=== PATIENT | male | born 1990 | race African-American/Black ===

== ENCOUNTER 2017-01-05 13:45 | Emergency (ER) | payer BC ==
[2017-01-05] MEDS ORDERED: TETRACAINE HCL 0.5% OPH SOLN 2 ML OU ONE (15:14)
--- NOTE | 2017-01-05 15:17 | ER Document Report ---
ED Eye Complaint - General Chief Complaint: Eye Problem Stated Complaint: PAIN IN LEFT EYE Time Seen by Provider: 01/05/17 14:30 Mode of Arrival: Ambulatory Information source: Patient - HPI Onset: Just prior to arrival Eye location: Left Injury: No Occurred at: Work Quality of pain: No pain Severity: Mild Contact lenses worn: No Associated symptoms: Itching, Redness. denies: Pain, Photophobia, Matting, Eyelid swelling, Orbital swelling, Foreign body sensation, Blurred vision, Double vision, Decreased vision, Loss of vision Notes: Patient arrives with complaints of left eye swelling. 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 He touched his left eye and then noticed that the left eye became swollen. He denies any significant pain. No drainage. No blurred or loss vision. No foreign body. He does not wear contacts. He denies any numbness, tingling, weakness. No fevers, or rash. He denies any other complaints at this time. - Related Data Allergies/Adverse Reactions: No Known Allergies Allergy (Unverified 01/05/17 13:49) Past Medical History - Social History Smoking Status: Never Smoker Chew tobacco use (# tins/day): No Frequency of alcohol use: None Drug Abuse: None Family History: Reviewed & Not Pertinent Renal/ Medical History: Denies: Hx Peritoneal Dialysis Surgical Hx: Negative Review of Systems - Review of Systems -: Yes All other systems reviewed and negative Physical Exam - Vital signs Vitals: Temp Pulse BP Pulse Ox 98.4 F 57 L 139/73 H 100 01/05/17 13:49 01/05/17 13:49 01/05/17 13:49 01/05/17 13:49 - Notes Notes: GENERAL: alert, cooperative, nontoxic, no distress. HEAD: normocephalic, atraumatic EYES: Ecchymosis noted to the left conjunctival. Minimal injection. Pupils equal round react to light. Extraocular muscles are intact bilaterally. On fluorescein exam there is an abrasion noted to the lateral aspect at approximately 3:00 to the cornea. No dendritic lesions. No foreign body. No periorbital redness or swelling. Negative Lolly sign. EARS: no external swelling, no external redness NOSE: atraumatic, no external swelling MOUTH/THROAT: mucous membranes moist and pink NECK: soft, supple, full range of motion, no meningismus. CHEST: no distress, lungs clear and equal throughout. No wheezing, rales, rhonchi. CARDIAC: regular rate and rhythm, no murmur, normal capillary refill, normal pulses. BACK: full range of motion, no CVA tenderness. EXTREMITIES: full range of motion of all extremities. No redness, no swelling. NEURO: alert and oriented 3, no focal deficits, full range of motion of all extremities. PYSCH: appropriate mood, affect. Patient is cooperative. SKIN: pink, warm, dry, no rash. Course - Re-evaluation Re-evalutation: 01/05/17 15:55 The patient is nontoxic appearing with stable vitals. The patient was at work when he had an itch to his left eye. He states that he scratched his eye and then noticed that his eye was swollen. He appears to have a small abrasion to the lateral aspect of the left cornea. Is also noted to have ecchymosis to the eye as well. I will place him on Polytrim antibiotic eyedrops for the abrasion. Zaditor eyedrops for allergic reaction. He was also instructed to take Benadryl and apply cool compresses to the left eye. Follow-up if not improving in the next 2 days, sooner for increased pain, fever, redness or swelling around the outside of the eye, or any further concerns. The patient is noted to have elevated blood pressure during today's emergency department visit. The patient was informed of this finding. The patient was instructed that this may be related to pre-hypertension and requires further evaluation with a primary care provider. The patient has no hypertensive symptoms at this time. The patient's emergency department workup and current diagnosis were explained to the patient and or family. Follow-up instructions were provided. Medications if prescribed were discussed. Instructions for when to return to the emergency department including specific worrisome symptoms were discussed with the patient and/or family. - Vital Signs Vital signs: Temp Pulse Resp BP Pulse Ox 98.4 F 57 L 139/73 H 100 01/05/17 13:49 01/05/17 13:49 01/05/17 13:49 01/05/17 13:49 Discharge - Discharge Clinical Impression: Chemosis of left conjunctiva Left corneal abrasion Qualifiers: Encounter type: initial encounter Qualified Code(s): S05.02XA - Injury of conjunctiva and corneal abrasion without foreign body, left eye, initial encounter Condition: Stable Disposition: HOME, SELF-CARE Instructions: Corneal Abrasion ([facility]), Eyedrop Use ([facility]), Chemosis ([facility]) Additional Instructions: Take medications as prescribed. Take ofse-nts-juosohs Benadryl every 6 hours. Apply cool compresses to the left eye. Follow-up if not better in 2 days, sooner for increased pain, fever, lost vision, redness or swelling around the outside of the eye, or any further concerns. Your blood pressure was elevated during today's visit. Have this rechecked with your doctor. Prescriptions: Ketotifen Fumarate [Zaditor] 1 drop OP BID #1 bot Polymyxin B Sulfate/Tmp [Polytrim Oph Soln 10 ml] 2 drop OP Q6H #1 bottle Forms: Elevated Blood Pressure Referrals: HERMELINDA SALMON MD [ACTIVE STAFF] - Follow up as needed
[2017-01-05 16:15] VITALS: BP 116/78
== END 2017-01-05 16:22 | disposition home or self-care (01) ==
LOC: ER 13:45
DX: S05.02XA Injury of conjunctiva and corneal abrasion without foreign body, left eye, initial encounter (principal); X58.XXXA Exposure to other specified factors, initial encounter; H11.422 Conjunctival edema, left eye; H57.11 Ocular pain, right eye; R03.0 Elevated blood-pressure reading, without diagnosis of hypertension
CPT/HCPCS: 99283

== ENCOUNTER 2017-08-17 20:06 | Emergency (ER) | payer OTHER, BC ==
[2017-08-17 20:16] VITALS: BP 119/69
--- NOTE | 2017-08-17 20:42 | ER Document Report ---
HPI - HPI Pain Level: 3 Context: Patient is a 27-year-old male presents emergency department with chief complaint of insect bite. Patient states that he was at work when he noticed a bite on the dorsal surface of his right forearm. He admits to itching but denies any pain, swelling, drainage or bleeding. - CONSTITUTIONAL Constitutional: DENIES: Fever, Chills Past Medical History - Social History Smoking Status: Unknown if Ever Smoked Family History: Reviewed & Not Pertinent Patient has suicidal ideation: No Patient has homicidal ideation: No Pulmonary Medical History: Reports: Hx Asthma - childhood Renal/ Medical History: Denies: Hx Peritoneal Dialysis Vertical Provider Document - CONSTITUTIONAL Agree With Documented VS: Yes Notes: PHYSICAL EXAM GENERAL: Alert, interacts well. HEAD: Normocephalic, atraumatic. EXTREMITIES: Moves all 4 extremities spontaneously. 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 No edema, radial and dorsalis pedis pulses 2/4 bilaterally. No cyanosis. NEUROLOGICAL: Alert and oriented x4. Normal speech. PSYCH: Normal affect, normal mood. SKIN: Warm, dry, normal turgor. 1 cm wheal without any evidence of surrounding induration, cellulitis, erythema, tenderness. - INFECTION CONTROL TRAVEL OUTSIDE OF THE [place] IN LAST 30 DAYS: No Course - Re-evaluation Re-evalutation: 08/17/17 20:42 Patient is a 27-year-old male presents emergency part with a chief complaint of insect bite. No evidence of associated infection, underlying muscular injury. Patient educated on conservative wound care and strict return precautions. - Vital Signs Vital signs: Temp Pulse Resp BP Pulse Ox 98.2 F 52 L 16 119/69 100 08/17/17 20:14 08/17/17 20:14 08/17/17 20:14 08/17/17 20:14 08/17/17 20:14 Discharge - Discharge Clinical Impression: Insect bite Qualifiers: Encounter type: initial encounter Qualified Code(s): W57.XXXA - Bitten or stung by nonvenomous insect and other nonvenomous arthropods, initial encounter Condition: Good Disposition: HOME, SELF-CARE Instructions: Insect Bites ([facility]) Forms: Return to Work
== END 2017-08-17 20:47 | disposition home or self-care (01) ==
LOC: ER 20:06
DX: S60.861A Insect bite (nonvenomous) of right wrist, initial encounter (principal); W57.XXXA Bitten or stung by nonvenomous insect and other nonvenomous arthropods, initial encounter; Y99.0 Civilian activity done for income or pay
CPT/HCPCS: 99281

== ENCOUNTER 2017-08-31 20:56 | Emergency (ER) | payer BC, OTHER ==
--- NOTE | 2017-08-31 21:54 | RADIOLOGY REPORT (SQ) ---
EXAM DESCRIPTION: SHOULDER RIGHT 2 OR MORE VIEWS COMPLETED DATE/TIME: 08/31/2017 9:43 pm REASON FOR STUDY: pain COMPARISON: None. NUMBER OF VIEWS: Three views. TECHNIQUE: Internal rotation, external rotation, and Y view images acquired of the right shoulder. LIMITATIONS: None. FINDINGS: MINERALIZATION: Normal. BONES: No acute fracture or dislocation. No worrisome bone lesions. No significant osteophytes. GLENOHUMERAL JOINT: No significant findings. ACROMIOCLAVICULAR JOINT: No large osteophytes. SOFT TISSUES: No calcifications. VISUALIZED RIBS, SPINE, AND LUNG: No other significant finding. OTHER: No other significant finding. IMPRESSION: NEGATIVE STUDY OF THE RIGHT SHOULDER. NO RADIOGRAPHIC EVIDENCE OF ACUTE INJURY. NO EXPLA NATION FOR PAIN. TECHNICAL DOCUMENTATION: JOB ID: [id number] [employer]- All Rights Reserved Reading location - IP/workstation name: [email or web address]
[2017-08-31] MEDS ORDERED: KETOROLAC TROMETHAMINE INJ/PF 30 MG/1 ML SDV IM ONE (23:19)
--- NOTE | 2017-08-31 23:19 | ER Document Report ---
ED General - General Chief Complaint: Shoulder Pain Stated Complaint: RT SHOULDER PAIN Time Seen by Provider: 08/31/17 23:09 Notes: Patient is a 27-year-old male presents with complaint of pain over the right shoulder. Patient says that the pain started a couple days ago. He said this week he started new workout routine is been going to the gym and lifting weights. Says the pain is worse when he tries to raise his arm away from his body. Pain is over the anterior shoulder. No blunt trauma or direct injuries to the shoulder. No weakness or numbness into the hand. No other complaints at this time. TRAVEL OUTSIDE OF THE [place] IN LAST 30 DAYS: No - Related Data Allergies/Adverse Reactions: No Known Allergies Allergy (Unverified 01/05/17 13:49) Past Medical History - Social History Smoking Status: Unknown if Ever Smoked Frequency of alcohol use: None Drug Abuse: None Family History: Reviewed & Not Pertinent Patient has suicidal ideation: No Patient has homicidal ideation: No Pulmonary Medical History: Reports: Hx Asthma - childhood Renal/ Medical History: Denies: Hx Peritoneal Dialysis Review of Systems - Review of Systems Notes: My Normal Review Basic REVIEW OF SYSTEMS: CONSTITUTIONAL : Denies fever, chills, or sweats. Denies recent illness. CARDIOVASCULAR: Denies chest pain. MUSCULOSKELETAL: Right shoulder pain SKIN: Denies rash or skin lesions. NEUROLOGICAL: Denies sensory or motor loss. ALL OTHER SYSTEMS REVIEWED AND NEGATIVE. Physical Exam - Vital signs Vitals: Temp Pulse Resp BP Pulse Ox 98.3 F 47 L 20 115/74 99 08/31/17 21:57 08/31/17 21:57 08/31/17 21:57 08/31/17 21:57 08/31/17 21:57 - Notes Notes: General Appearance: Well nourished, alert, cooperative, no acute distress, no obvious discomfort. Vitals: reviewed, See vital signs table. Eyes: PERRL, EOMI, Conjuctiva clear Mouth: No decreasd moisture Neck: Supple, no neck tenderness, No thyromegaly Extremities: strength 5/5 in all extremities, good pulses in all extremities, pain to palpation of the anterior shoulder including the acromioclavicular joint as well as along the clavicle. Pain with any attempt of abduction of the right shoulder. No significant pain with external rotation. Distal sensation of the right hand is fully intact. Patient is able to move all fingers without difficulty., no edema. Skin: warm, dry, appropriate color, no rash Neuro: speech clear, oriented x 3, normal affect, responds appropriately to questions. Course - Re-evaluation Re-evalutation: 09/01/17 04:35 Patient patient's exam location of pain is suspected there is subacromial bursitis or impingement syndrome or may be both. I informed this to the patient. He has not taken any medications for pain. I encouraged him start taking anti-inflammatory medications and showed him exercises to do to try to help with possible impingement syndrome. Encouraged him to follow-up with orthopedist in 1 week if his symptoms are not improving with the treatment I have described. Encourage him return to ER immediately if he has any weakness or numbness into the hand, worsening pain, or feels unwell. Patient agrees with plan will be discharged home. Dictation of this chart was performed using voice recognition software; therefore, there may be some unintended grammatical errors. - Vital Signs Vital signs: Temp Pulse Resp BP Pulse Ox 97.8 F 48 L 16 107/64 100 08/31/17 23:54 08/31/17 23:54 08/31/17 23:54 08/31/17 23:54 08/31/17 23:54 Discharge - Discharge Clinical Impression: Shoulder pain, right Qualifiers: Chronicity: acute Qualified Code(s): M25.511 - Pain in right shoulder Condition: Good Disposition: HOME, SELF-CARE Additional Instructions: Please do the exercises like I showed you in the ER. Please take Ibuprofen 600mg every 8 hours with food. Please do not do any heavy lifting with the right shoulder. Follow up with the orthopedist in 1 week if symptoms have not improved. Referrals: ORSA LINARES MD [ACTIVE STAFF] - Follow up in 1 week
[2017-08-31 23:57] VITALS: BP 107/64
== END 2017-08-31 23:54 | disposition home or self-care (01) ==
LOC: ER 20:56
DX: M25.511 Pain in right shoulder (principal)
CPT/HCPCS: 99283; 96372; 73030; J1885

== ENCOUNTER 2017-09-26 20:00 | Emergency (ER) | payer BC ==
[2017-09-26 20:09] VITALS: BP 119/70
--- NOTE | 2017-09-26 20:31 | RADIOLOGY REPORT (SQ) ---
EXAM DESCRIPTION: HAND LEFT 3 VIEWS COMPLETED DATE/TIME: 09/26/2017 8:20 pm REASON FOR STUDY: Pain s/p injury 1 month ago COMPARISON: None. EXAM PARAMETERS: NUMBER OF VIEWS: Three views. TECHNIQUE: AP, lateral and oblique radiographic images acquired of the left hand. LIMITATIONS: None. FINDINGS: MINERALIZATION: Normal. BONES: No acute fracture or dislocation. No worrisome bone lesions. JOINTS: No effusions. SOFT TISSUES: No soft tissue swelling. No foreign body. OTHER: No other significant finding. IMPRESSION: NO RADIOGRAPHIC EVIDENCE OF ACUTE INJURY. TECHNICAL DOCUMENTATION: JOB ID: [id number] [place]-72 2010 [employer]- All Rights Reserved Reading location - IP/workstation name: [email or web address]
[2017-09-26] MEDS ORDERED: IBUPROFEN 800 MG TABLET PO ONE (21:12)
--- NOTE | 2017-09-26 21:20 | ER Document Report ---
ED Hand/Wrist Injury - General Chief Complaint: Hand Injury Stated Complaint: HAND INJURY Time Seen by Provider: 09/26/17 20:49 Mode of Arrival: Ambulatory Information source: Patient Notes: 27-year-old male presents to ED for complaint of pain to his left hand and fifth finger. He states he injured his hand about a month ago playing sports when he fell and hurt it. He states it is been painful since then and today he hit his hand on the steering wheel causing the pain to increase. There is no fracture to the finger according to the x-ray. She is alert oriented respirations regular and unlabored speaking in full sentences. TRAVEL OUTSIDE OF THE [place] IN LAST 30 DAYS: No - HPI Injury to: Hand, Small finger Onset: Other - month ago Where: Outdoors Timing: Still present Quality of pain: Sharp, Throbbing Severity: Moderate Pain Level: 4 Context: Blow - Related Data Allergies/Adverse Reactions: No Known Allergies Allergy (Unverified 01/05/17 13:49) Past Medical History - General Information source: Patient - Social History Smoking Status: Never Smoker Chew tobacco use (# tins/day): No Frequency of alcohol use: None Drug Abuse: None Occupation: [employer] Lives with: Parents Family History: Reviewed & Not Pertinent Patient has suicidal ideation: No Patient has homicidal ideation: No - Past Medical History Cardiac Medical History: Reports: None Pulmonary Medical History: Reports: Hx Asthma - childhood EENT Medical History: Reports: None Neurological Medical History: Reports: None Endocrine Medical History: Reports: None Renal/ Medical History: Reports: None Malignancy Medical History: Reports None GI Medical History: Reports: None Musculoskeltal Medical History: Reports Hx Musculoskeletal Trauma Skin Medical History: Reports None Psychiatric Medical History: Reports: None Traumatic Medical History: Reports: None Infectious Medical History: Reports: None Surgical Hx: Negative Past Surgical History: Reports: None - Immunizations Immunizations up to date: Yes Hx Diphtheria, Pertussis, Tetanus Vaccination: Yes Review of Systems - Review of Systems Constitutional: No symptoms reported EENT: No symptoms reported Cardiovascular: No symptoms reported Respiratory: No symptoms reported Gastrointestinal: No symptoms reported Genitourinary: No symptoms reported Male Genitourinary: No symptoms reported Musculoskeletal: Other - Pain and left fifth finger for the last month. Skin: No symptoms reported Hematologic/Lymphatic: No symptoms reported Neurological/Psychological: No symptoms reported -: Yes All other systems reviewed and negative Physical Exam - Vital signs Vitals: Temp Pulse Resp BP Pulse Ox 98.6 F 78 18 119/70 98 09/26/17 20:07 09/26/17 20:07 09/26/17 20:07 09/26/17 20:07 09/26/17 20:07 Interpretation: Normal - General General appearance: Appears well, Alert - HEENT Head: Normocephalic, Atraumatic Eyes: Normal Pupils: PERRL - Respiratory Respiratory status: No respiratory distress Chest status: Nontender Breath sounds: Normal Chest palpation: Normal - Cardiovascular Rhythm: Regular Heart sounds: Normal auscultation Murmur: No - Abdominal Inspection: Normal Distension: No distension Bowel sounds: Normal Tenderness: Nontender Organomegaly: No organomegaly - Back Back: Normal, Nontender - Extremities General upper extremity: Normal inspection, Normal color, Normal temperature General lower extremity: Normal inspection, Nontender, Normal color, Normal ROM , Normal temperature, Normal weight bearing. No: Donny's sign Hand: Tender - Left fifth finger, No evidence of human bite, No evidence of FB. No: Abrasion, Deformity, Dislocation, Ecchymosis, Instability, Laceration, Nail injury, Swelling, Tendon deficit - Neurological Neuro grossly intact: Yes Cognition: Normal Orientation: AAOx4 Maggie Coma Scale Eye Opening: Spontaneous [place] Coma Scale Verbal: Oriented Maggie Coma Scale Motor: Obeys Commands Maggie Coma Scale Total: 15 Speech: Normal Motor strength normal: LUE, RUE, LLE, RLE Sensory: Normal - Psychological Associated symptoms: Normal affect, Normal mood - Skin Skin Temperature: Warm Skin Moisture: Dry Skin Color: Normal Course - Re-evaluation Re-evalutation: 09/26/17 21:19 Discussed x-ray with patient and written report of x-ray given the patient to follow-up with his primary doctor and orthopedics. There was a finger splint applied to the finger due to complaint of pain. Patient was instructed he could remove the splint when the finger was less painful. Patient is instructed to follow-up with orthopedics if he continued to have pain. Patient was instructed on use of elevation ice and ibuprofen for the discomfort. - Vital Signs Vital signs: Temp Pulse Resp BP Pulse Ox 98.6 F 78 18 119/70 98 09/26/17 20:07 09/26/17 20:07 09/26/17 20:07 09/26/17 20:07 09/26/17 20:07 - Diagnostic Test Radiology reviewed: Image reviewed, Reports reviewed Procedures - Immobilization Left Finger Time completed: 21:30 Immobilizer type: Finger splint (Static) Performed by: BERRY Post-Proc Neuro Vasc Exam: Normal Alignment checked and good: Yes Discharge - Discharge Clinical Impression: Pain in finger of left hand Contusion of left hand including fingers Qualifiers: Encounter type: initial encounter Qualified Code(s): S60.222A - Contusion of left hand, initial encounter Condition: Stable Disposition: HOME, SELF-CARE Additional Instructions: CONTUSION: Your injury has resulted in a contusion -- a crushing of the deep tissues. No injury to important structures was detected during the physician's exam. Contusions vary in the amount of pain they cause, and in the length of time required for healing. Typically, the area will become bruised, and will remain painful to touch for two or three weeks. However, most patients are back to working and playing within a few days. After the initial period of rest and cold-packs, your symptoms (together with the doctor's recommendations) will determine how rapidly you can get back to full activity. Usually this means "do what feels okay, but don't do things that hurt." If re-examination was recommended, it's important to follow up as instructed. Call the doctor or return any time if pain increases, if swelling becomes severe, if you develop numbness or weakness in an injured extremity, or if any other alarming symptoms occur. USE OF TYLENOL (ACETAMINOPHEN): Acetaminophen may be taken for pain relief or fever control. It's much safer than aspirin, offering a wider range of "safe" dosages. It is safe during . Some brand names are Tylenol, Panadol, Datril, Anacin 3, Tempra, and Liquiprin. Acetaminophen can be repeated every four hours. The following are maximum recommended dosages: WEIGHT Dose Drops Elixir Chewable( 80mg) (LBS.) drprs=droppers tsp=teaspoon 6 40 mg 0.4 ml (1/2) 6-11 80 mg 0.8 ml (full) tsp 1 tab 12-16 120 mg 1 1/2 drprs 3/4 tsp 1 1/2 tabs 17-23 160 mg 2 drprs 1 tsp 2 tabs 24-30 240 mg 3 drprs 1 1/2 tsp 3 tabs 30-35 320 mg 2 tsp 4 tabs 36-41 360 mg 2 1/4 tsp 4 1/2 tabs 42-47 400 mg 2 1/2 tsp 5 tabs 48-53 480 mg 3 tsp 6 tabs 54-59 520 mg 3 1/4 tsp 6 1/2 tabs 60-64 560 mg 3 1/2 tsp 7 tabs 65-70 600 mg 3 3/4 tsp 7 1/2 tabs 71-76 640 mg 4 tsp 8 tabs 77-82 720 mg 4 1/2 tsp 9 tabs 83-88 800 mg 5 tsp 10 tabs >89 pounds or adults 650 mg to 900 mg Acetaminophen can be repeated every four hours. Maximum dose not to exceed 4000 mg a day. These maximum recommended dosages are slightly higher than the dosages written on the product container, but these dosages are very safe and below the toxic dosage for acetaminophen. ICE & ELEVATION: Apply ice packs frequently against the painful area. Many different schedules are recommended, such as "20 minutes on, 20 minutes off" or "one hour ice, two hours rest." If you need to work, you may need to go longer between ice treatments. You should plan to have the area ice packed AT LEAST one- fourth of the time. The ice should be applied over the wrap, tape, or splint, or over a layer of cloth -- not directly against the skin. Some ice bags have a built-in cloth and can be put directly on the skin. Your injured part should be elevated as much as possible over the next 48 hours. Try to keep the injury above the level of the heart. Avoid use of the injured area. Elevation and rest will decrease the swelling. USE OF [id number] IBUPROFEN: Ibuprofen (Advil, Nuprin, Medipren, Motrin IB) is a medication for fever and pain control. In addition, it has anti- inflammatory effects which may be beneficial, especially in the treatment of injuries. It's best to take ibuprofen with food. Persons with ulcer disease or allergy to aspirin should notify their physician of this before taking ibuprofen. Ibuprofen can be given every four to six hours, for a total of four doses daily. Age Pain or fever dose Antiinflammatory dose 6-8 yr 200 mg (1 tab) 200 mg (1 tab) 9-11 yr 200 mg (1 tab) 200-400 mg (1-2 tab) 11-14 yr 200-400 mg (1-2 tab) 400 mg (2 tab) 15-adult 400 mg (2 tab) 600 mg (3 tab) You had an x-ray in the emergency room. The x-ray did not show any bony abnormalities at this time. You have been given a copy of the x-ray. You will need to follow-up with orthopedics if she continued to have any pain or discomfort to this hand. You have been treated with a finger splint which is keeps the finger immobilized while it is painful. You can remove this finger when the pain is decreased and manipulate the finger. Follow-up with orthopedics if she continued to have pain in this finger. FOLLOW-UP CARE: If you have been referred to a physician for follow-up care, call the physician s office for an appointment as you were instructed or within the next two days. If you experience worsening or a significant change in your symptoms, notify the physician immediately or return to the Emergency Department at any time for re-evaluation. Forms: Return to Work Referrals: ROSA LINARES MD [ACTIVE STAFF] - Follow up as needed
== END 2017-09-26 21:29 | disposition home or self-care (01) ==
LOC: ER 20:00
DX: S60.222A Contusion of left hand, initial encounter (principal); W18.30XA Fall on same level, unspecified, initial encounter
CPT/HCPCS: 99283

== ENCOUNTER 2017-12-20 06:55 | Emergency (ER) | payer SELFPAY ==
[2017-12-20] MEDS ORDERED: ACETAMINOPHEN 325 MG TABLET PO ONE (09:16)
--- NOTE | 2017-12-20 09:16 | ER Document Report ---
ED General - General Chief Complaint: Headache Stated Complaint: HEAD PAIN Time Seen by Provider: 12/20/17 08:59 Notes: Pt. is a 27 year old male presenting to the ED for a headache. Stated he has had intermittent headaches for the last few months. Stated headaches are usually in the occiput area and then can move to his forehead or around to the side of his head. Stated that he usually takes tylenol which helps the headaches but did not take any medication this morning. Denies NVD, fever, photophobia, URI symptoms, recent trauma or injury to his head neck or back. Stated he has missed work a couple of times d/t these headaches and does not have insurance and needs a work note for today's visit. Stated pain is 4/10 dull at this time only in his occiupt and stated the last time he had a headache was 5 days ago. He does not get them daily. PMH: none Meds: none Allergies: none PCP: none Patient denies illicit drug use, denies alcohol, denies cigarette smoking. TRAVEL OUTSIDE OF THE [place] IN LAST 30 DAYS: No - Related Data Allergies/Adverse Reactions: No Known Allergies Allergy (Verified 12/20/17 06:57) Past Medical History - General Information source: Patient - Social History Smoking Status: Never Smoker Chew tobacco use (# tins/day): No Frequency of alcohol use: None Drug Abuse: None Lives with: Family Family History: Reviewed & Not Pertinent Patient has suicidal ideation: No Patient has homicidal ideation: No Pulmonary Medical History: Reports: Hx Asthma - childhood Renal/ Medical History: Denies: Hx Peritoneal Dialysis Musculoskeletal Medical History: Reports Hx Musculoskeletal Trauma - Immunizations Immunizations up to date: Yes Hx Diphtheria, Pertussis, Tetanus Vaccination: Yes Review of Systems - Review of Systems Constitutional: See HPI EENT: See HPI Cardiovascular: See HPI Respiratory: See HPI Gastrointestinal: See HPI Genitourinary: No symptoms reported Male Genitourinary: No symptoms reported Musculoskeletal: See HPI Skin: See HPI Hematologic/Lymphatic: No symptoms reported Neurological/Psychological: See HPI Physical Exam - Vital signs Vitals: Temp Pulse Resp BP Pulse Ox 98.0 F 62 16 127/77 H 99 12/20/17 06:59 12/20/17 06:59 12/20/17 06:59 12/20/17 06:59 12/20/17 06:59 - Notes Notes: GENERAL: Alert, interacts well. No acute distress. typing on his cell phone. HEAD: Normocephalic, atraumatic. EYES: Pupils equal, round, and reactive to light. Extraocular movements intact. ENT: Oral mucosa moist, tongue midline. NECK: Full range of motion. Supple. Trachea midline. LUNGS: Clear to auscultation bilaterally, no wheezes, rales, or rhonchi. No respiratory distress. HEART: Regular rate and rhythm. No murmur ABDOMEN: Soft, non-tender. Non-distended. Bowel sounds present in all 4 quadrants. EXTREMITIES: Moves all 4 extremities spontaneously. No edema, normal radial and dorsalis pedis pulses bilaterally. No cyanosis. BACK: no cervical, thoracic, lumbar midline tenderness. No saddle anesthesia, normal distal neurovascular exam. NEUROLOGICAL: Alert and oriented x3. Normal speech. cranial nerves II through XII grossly intact. PSYCH: Normal affect, normal mood. SKIN: Warm, dry, normal turgor. No rashes or lesions noted. Course - Re-evaluation Re-evalutation: Asked the Pt. why he did not take tylenol this morning if that usually helps his headaches. He stated that he has been missing a lot of work d/t the headaches and needed a doctors note and because he does not have a PCP he came to the ED. Stated that the would appreciate if we gave him tylenol here in the ED and a work note. Pt. then continues to look at his phone in NAD. Given tylenol, work note and then ready for D/C. - Vital Signs Vital signs: Temp Pulse Resp BP Pulse Ox 97.5 F 55 L 14 122/73 100 12/20/17 09:43 12/20/17 09:43 12/20/17 09:43 12/20/17 09:43 12/20/17 09:43 Discharge - Discharge Clinical Impression: Head ache Qualifiers: Headache type: unspecified Headache chronicity pattern: chronic headache Intractability: not intractable Qualified Code(s): R51 - Headache Condition: Good Disposition: HOME, SELF-CARE Instructions: Headache ([facility]) Additional Instructions: As we discussed you need to follow-up with a primary care provider. Due to not having insurance she can follow-up with the [facility] or the contact that is provided in this paperwork. Return to the emergency room should your headaches get worse, you develop numbness or tingling down any extremity, or any other concerning symptoms. Forms: Return to Work
[2017-12-20 09:44] VITALS: BP 122/73
== END 2017-12-20 09:45 | disposition home or self-care (01) ==
LOC: ER 06:55
DX: R51 Headache (principal)
CPT/HCPCS: 99283

== ENCOUNTER 2018-03-12 08:54 | Emergency (ER) | payer SELFPAY ==
[2018-03-12] MEDS ORDERED: CIPROFLOXACIN HCL/DEXAMETH OTIC DROP 7.5 ML AD ONE (09:31)
--- NOTE | 2018-03-12 09:38 | ER Document Report ---
ED ENT - General Chief Complaint: Ear Pain Stated Complaint: EAR PAIN Time Seen by Provider: 03/12/18 09:03 Mode of Arrival: Ambulatory Information source: Patient Notes: 27-year-old male presents to ED for complaint of ear pain headache and ringing in his ear to the right side. He states that the ringing in pain and headache started yesterday. Patient states he has not used Q-tips in his ears and years. Patient is alert oriented respirations regular and unlabored speaking in full sentences walks with a even steady gait. TRAVEL OUTSIDE OF THE [place] IN LAST 30 DAYS: No - HPI Patient complains to provider of: Ear problem Onset: Yesterday Onset/Duration: Gradual Quality of pain: Sharp - With ringing in his ear and headache Severity: Moderate Pain Level: 3 Location of pain: Ears Associated symptoms: Ear pain, Ear drainage Similar symptoms previously: Yes Recently seen / treated by doctor: No - Related Data Allergies/Adverse Reactions: No Known Allergies Allergy (Verified 03/12/18 08:55) Past Medical History - General Information source: Patient - Social History Smoking Status: Never Smoker Cigarette use (# per day): No Chew tobacco use (# tins/day): No Smoking Education Provided: No Frequency of alcohol use: None Drug Abuse: None Lives with: Spouse/Significant other Family History: Reviewed & Not Pertinent Patient has suicidal ideation: No Patient has homicidal ideation: No - Past Medical History Cardiac Medical History: Reports: None Pulmonary Medical History: Reports: Hx Asthma - childhood EENT Medical History: Reports: None Neurological Medical History: Reports: None Endocrine Medical History: Reports: None Renal/ Medical History: Reports: None Malignancy Medical History: Reports None GI Medical History: Reports: None Musculoskeletal Medical History: Reports Hx Musculoskeletal Trauma Skin Medical History: Reports None Psychiatric Medical History: Reports: None Traumatic Medical History: Reports: None Infectious Medical History: Reports: None Surgical Hx: Negative Past Surgical History: Reports: None - Immunizations Immunizations up to date: Yes Hx Diphtheria, Pertussis, Tetanus Vaccination: Yes Review of Systems - Review of Systems Constitutional: No symptoms reported EENT: Ear pain, Ear discharge Cardiovascular: No symptoms reported Respiratory: No symptoms reported Gastrointestinal: No symptoms reported Genitourinary: No symptoms reported Male Genitourinary: No symptoms reported Musculoskeletal: No symptoms reported Skin: No symptoms reported Hematologic/Lymphatic: No symptoms reported Neurological/Psychological: No symptoms reported -: Yes All other systems reviewed and negative Physical Exam - Vital signs Vitals: Temp Pulse Resp BP Pulse Ox 98.7 F 52 L 18 135/71 H 98 03/12/18 08:58 03/12/18 08:58 03/12/18 08:58 03/12/18 08:58 03/12/18 08:58 Interpretation: Normal - General General appearance: Appears well, Alert - HEENT Head: Normocephalic, Atraumatic Eyes: Normal Pupils: PERRL Ears: Pinna tenderness, Tragus tenderness External canal: Cerumen impaction, Erythema, Swollen Tympanic membrane: Normal Sinus: Normal Nasal: Normal Mouth/Lips: Normal Pharynx: Normal Neck: Normal - Respiratory Respiratory status: No respiratory distress Chest status: Nontender Breath sounds: Normal Chest palpation: Normal - Cardiovascular Rhythm: Regular Heart sounds: Normal auscultation Murmur: No - Abdominal Inspection: Normal Distension: No distension Bowel sounds: Normal Tenderness: Nontender Organomegaly: No organomegaly - Back Back: Normal, Nontender - Extremities General upper extremity: Normal inspection, Nontender, Normal color, Normal ROM, Normal temperature General lower extremity: Normal inspection, Nontender, Normal color, Normal ROM, Normal temperature, Normal weight bearing. No: Donny's sign - Neurological Neuro grossly intact: Yes Cognition: Normal Orientation: AAOx4 Ozan Coma Scale Eye Opening: Spontaneous Maggie Coma Scale Verbal: Oriented Maggie Coma Scale Motor: Obeys Commands Ozan Coma Scale Total: 15 Speech: Normal Motor strength normal: LUE, RUE, LLE, RLE Sensory: Normal - Psychological Associated symptoms: Normal affect, Normal mood - Skin Skin Temperature: Warm Skin Moisture: Dry Skin Color: Normal Course - Re-evaluation Re-evalutation: 03/12/18 09:48 Large cerumen impaction removed from the right ear with a curette canal very red and inflamed after impaction removed. There is some drainage in the ear behind the impaction. No fluids were put in the ear to remove this impaction. Patient was treated with Ciprodex eardrops and given instructions on removal of cerumen impactions. Patient instructed to follow-up with primary doctor and with ENT if the continue to have any problems with his ear. - Vital Signs Vital signs: Temp Pulse Resp BP Pulse Ox 98.7 F 52 L 18 135/71 H 98 03/12/18 08:58 03/12/18 08:58 03/12/18 08:58 03/12/18 08:58 03/12/18 08:58 Discharge - Discharge Clinical Impression: Cerumen impaction Qualifiers: Laterality: right Qualified Code(s): H61.21 - Impacted cerumen, right ear Otitis externa Qualifiers: Otitis externa type: unspecified type Chronicity: acute Laterality: right Qualified Code(s): H60.501 - Unspecified acute noninfective otitis externa, right ear Condition: Stable Disposition: HOME, SELF-CARE Instructions: Family Physicians / Practices Additional Instructions: Cerumen Impaction The physician found a severe buildup of earwax in your ear canal, called a cerumen impaction. A large plug of wax can cause earache, decreased hearing, or itching. It can even lead to infection of the outer ear. An impaction of earwax can be removed by the physician using special instruments, or can be irrigated out using a stream of water (often a little of both is required). Some less severe impactions are removed using ear drops that dissolve wax. In the future, don't get soap in your ear canal. Soap doesn't remove wax -- it simply hardens it in place. Don't use cotton swabs. These just push the wax into large clumps, where it doesn't flow out normally. Dust and smoke also contribute to wax buildup. Earwax softening drops are available without prescription, and can be used periodically. Contact the doctor if you develop decreased hearing, earache, drainage from the ear, or severe headache. OTITIS EXTERNA: You have otitis externa -- an infection of the outer ear canal. This can be very painful. It's sometimes called "swimmer's ear," because it often occurs after prolonged water exposure. Many things, such as earwax and dirt in the ear, can contribute to it. The usual treatment is antibiotic/antiinflammatory ear drops. Occasionally, a wick will be placed in the ear to draw in the medicine. If the infection is severe, an oral antibiotic may be prescribed. Pain medication is often needed. Avoid getting water in the ear. Outer ear infections often take longer to heal than you might expect. Some tenderness and ache in the ear may persist for about two weeks. See your physician if you fail to improve as expected. Call the doctor at once if you develop fever, increasing swelling (particularly if it makes your ear "poke out"), severe headache, stiff neck, or decreased hearing. USE OF EAR DROPS: Your ear drops won't do much good if they don't get all the way in. To help the ear drops penetrate all the way to the ear drum, use the following technique . If you encounter problems of any kind, notify the physician. (1) Lay your head sideways on a pillow. (2) Place the dropper tip just barely inside the ear canal, almost touching the bottom side of the canal. The liquid is tolerated better on the bottom of the canal. (3) Squeeze out the appropriate amount of medicine, and remove the dropper. (4) Grab the back of the ear (just behind the ear canal) between your index finger and thumb. (5) Tug up, then let the ear drop back. Repeat several times. This pumps the medicine down. (6) Wait five minutes, then place a cotton ball in the ear canal to catch and hold the medicine. CIPROFLOXACIN: You have been given an antibacterial agent, ciprofloxacin (Cipro). This medicine is not related to the penicillins, sulfas, cephalosporins, or tetracyclines. It is often given to patients who are allergic to these drugs. It has been chosen for you either because other drugs are not appropriate, or because of the nature of your problem. Cipro should not be taken with antacids, as these can decrease its effectiveness. It can be taken without regard to meals. CIPRO SHOULD NOT BE TAKEN BY CHILDREN, NURSING WOMEN, OR WOMEN. Although Cipro is usually well-tolerated, common side effects can include nausea and diarrhea. Contact your doctor if you experience any unusual symptoms while on this medication, such as joint pain or swelling, shortness of breath, wheezing, faintness, or hives. USE OF ACETAMINOPHEN (Tylenol): Acetaminophen may be taken for pain relief or fever control. It's much safer than aspirin, offering a wider range of "safe" dosages. It is safe during . Some brand names are Tylenol, Panadol, Datril, Anacin 3, Tempra, and Liquiprin. Acetaminophen can be repeated every four hours. The following are maximum recommended dosages: WEIGHT Dose Drops Elixir Chewable(80mg) (LBS.) drprs=droppers tsp=teaspoon 6 40 mg 0.4 ml (1/2) 6-11 80 mg 0.8 ml (full) tsp 1 tab 12-16 120 mg 1 1/2 drprs 3/4 tsp 1 1/2 tabs 17-23 160 mg 2 drprs 1 tsp 2 tabs 24-30 240 mg 3 drprs 1 1/2 tsp 3 tabs 30-35 320 mg 2 tsp 4 tabs 36-41 360 mg 2 1/4 tsp 4 1/2 tabs 42-47 400 mg 2 1/2 tsp 5 tabs 48-53 480 mg 3 tsp 6 tabs 54-59 520 mg 3 1/4 tsp 6 1/2 tabs 60-64 560 mg 3 1/2 tsp 7 tabs 65-70 600 mg 3 3/4 tsp 7 1/2 tabs 71-76 640 mg 4 tsp 8 tabs 77-82 720 mg 4 1/2 tsp 9 tabs 83-88 800 mg 5 tsp 10 tabs >89 pounds or adults 650 mg to 900 mg Acetaminophen can be repeated every four hours. Maximum dose not to exceed 4000 mg a day. These maximum recommended dosages are slightly higher than the dosages written on the product container, but these dosages are very safe and below the toxic dosage for acetaminophen. FOLLOW-UP CARE: If you have been referred to a physician for follow-up care, call the physicians office for an appointment as you were instructed or within the next two days. If you experience worsening or a significant change in your symptoms, notify the physician immediately or return to the Emergency Department at any time for re-evaluation. Forms: Elevated Blood Pressure
[2018-03-12 10:00] VITALS: BP 131/68
== END 2018-03-12 09:58 | disposition home or self-care (01) ==
LOC: ER 08:54
DX: H61.21 Impacted cerumen, right ear (principal); H60.501 Unspecified acute noninfective otitis externa, right ear; H92.01 Otalgia, right ear; R51 Headache
CPT/HCPCS: 99283; J3490

== ENCOUNTER 2018-04-03 10:19 | Emergency (ER) | payer BC ==
--- NOTE | 2018-04-03 11:26 | RADIOLOGY REPORT (SQ) ---
EXAM DESCRIPTION: FINGER LEFT COMPLETED DATE/TIME: 04/03/2018 11:18 am REASON FOR STUDY: left 5th digit pain COMPARISON: None. NUMBER OF VIEWS: Three views. TECHNIQUE: AP, lateral, and oblique images acquired of the left fifth finger. LIMITATIONS: None. FINDINGS: MINERALIZATION: Normal. BONES: No acute fracture or dislocation. No worrisome bone lesions. SOFT TISSUES: No soft tissue swelling. No foreign body. OTHER: No other significant finding. IMPRESSION: NO RADIOGRAPHIC EVIDENCE OF ACUTE INJURY. TECHNICAL DOCUMENTATION: JOB ID: [id number] [employer]- All Rights Reserved Reading location - IP/workstation name: [email or web address]
--- NOTE | 2018-04-03 11:46 | ER Document Report ---
HPI - HPI Time Seen by Provider: 04/03/18 10:42 Pain Level: 3 Notes: Patient is an otherwise healthy 28-year-old male who presents to the emergency department with chief complaint of left fifth digit pain. He states is been going on for several months. Denies any new injury states he has had normal x- rays here at [facility] before. Patient states the pain continues. Patient worried that he might have a ligament or tendon injury. - REPRODUCTIVE Reproductive: DENIES: : - MUSCULOSKELETAL Musculoskeletal: REPORTS: Extremity pain Past Medical History - General Information source: Patient - Social History Smoking Status: Never Smoker Frequency of alcohol use: None Drug Abuse: None Family History: Reviewed & Not Pertinent Patient has suicidal ideation: No Patient has homicidal ideation: No Pulmonary Medical History: Reports: Hx Asthma - childhood Renal/ Medical History: Denies: Hx Peritoneal Dialysis Musculoskeletal Medical History: Reports Hx Musculoskeletal Trauma - Immunizations Immunizations up to date: Yes Hx Diphtheria, Pertussis, Tetanus Vaccination: Yes Vertical Provider Document - CONSTITUTIONAL Notes: PHYSICAL EXAMINATION: GENERAL: Well-appearing, well-nourished and in no acute distress. HEAD: Atraumatic, normocephalic. EYES: Pupils equal round extraocular movements intact, conjunctiva are normal. ENT: Nares patent NECK: Normal range of motion LUNGS: No respiratory distress Musculoskeletal: Limited range of motion to left fifth digit, normal cap refill, normal sensation.. NEUROLOGICAL: Normal speech, normal gait. PSYCH: Normal mood, normal affect. SKIN: Warm, Dry, normal turgor, no rashes or lesions noted. - INFECTION CONTROL TRAVEL OUTSIDE OF THE [place] IN LAST 30 DAYS: No Course - Re-evaluation Re-evalutation: X-rays negative for any acute fracture or dislocation. Patient instructed to co ntinue taking ibuprofen, wear the splint that he had previously placed and follow-up with orthopedics if not improving. - Vital Signs Vital signs: Temp Pulse Resp BP Pulse Ox 98.3 F 66 16 126/63 H 99 04/03/18 10:33 04/03/18 10:33 04/03/18 10:33 04/03/18 10:33 04/03/18 10:33 Discharge - Discharge Clinical Impression: Finger pain Qualifiers: Laterality: left Qualified Code(s): M79.645 - Pain in left finger(s) Condition: Stable Disposition: HOME, SELF-CARE Additional Instructions: Your x-ray today was normal. I do suspect that you may have a ligament or tendon injury considering you continue to have pain after several months without resolve. Take Tylenol or ibuprofen at home while awaiting orthopedic follow-up. I will give you the number for Dr. Carrera he is our orthopedic hand specialist. Please call them next week to try to schedule an appointment. Forms: Special Work Note Referrals: POOJA CARRERA, DO [ACTIVE STAFF] - Follow up as needed
[2018-04-03 12:19] VITALS: BP 126/66
== END 2018-04-03 12:18 | disposition home or self-care (01) ==
LOC: ER 10:19
DX: M79.645 Pain in left finger(s) (principal)
CPT/HCPCS: 99283

== ENCOUNTER 2018-08-08 13:00 | Emergency (ER) | payer OTHER, BC ==
[2018-08-08] MEDS ORDERED: OXYCODONE-ACETAMINOPHEN 5-325 MG TABLET PO ONE (13:40)
[2018-08-08] MEDS ORDERED: DIPH/PERTUSS(ACELL)/TETANUS VAC/PF 0.5 ML SYR (>=10YO) IM ONE (13:40)
[2018-08-08 13:42] VITALS: BP 115/69
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
[2018-08-08] MEDS ORDERED: SILVER SULFADIAZINE 1% CREAM 400 GM TP PRN (14:08)
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
== END 2018-08-08 14:35 | disposition home or self-care (01) ==
LOC: ER 13:00
DX: T25.222A Burn of second degree of left foot, initial encounter (principal); X11.8XXA Contact with other hot tap-water, initial encounter; Y99.0 Civilian activity done for income or pay; Z23 Encounter for immunization
CPT/HCPCS: 99283; 90715; J3490

== ENCOUNTER 2018-12-28 19:10 | Emergency (ER) | payer BC ==
[2018-12-28 19:39] VITALS: BP 149/72
[2018-12-28] MEDS ORDERED: IBUPROFEN 800 MG TABLET PO ONE (19:55)
--- NOTE | 2018-12-28 19:58 | ER Document Report ---
ED Medical Screen (RME) - General Chief Complaint: Flu Symptoms Stated Complaint: BODY ACHE Time Seen by Provider: 12/28/18 19:54 Mode of Arrival: Ambulatory Information source: Patient Notes: 28-year-old male presented to ED for cough hot and cold flashes body aches dizzy nauseated sore throat cough congestion and fever. He does have a temperature of 100.5 right now. He states she is feeling very tired and fatigued. Patient is alert and oriented respirations regular nonlabored speaking in full sentences. I have greeted and performed a rapid initial assessment of this patient. A c omprehensive ED assessment and evaluation of the patient, analysis of test results and completion of medical decision making process will be conducted by an additional ED providers. TRAVEL OUTSIDE OF THE [place] IN LAST 30 DAYS: No - Related Data Allergies/Adverse Reactions: No Known Allergies Allergy (Verified 12/28/18 19:53) Past Medical History Pulmonary Medical History: Reports: Hx Asthma - childhood Renal/ Medical History: Denies: Hx Peritoneal Dialysis Musculoskeltal Medical History: Reports Hx Musculoskeletal Trauma - Immunizations Immunizations up to date: Yes Hx Diphtheria, Pertussis, Tetanus Vaccination: Yes Physical Exam - Vital signs Vitals: Temp Pulse Resp BP Pulse Ox 100.5 F H 93 15 149/72 H 99 12/28/18 19:37 12/28/18 19:37 12/28/18 19:37 12/28/18 19:37 12/28/18 19:37 Course - Vital Signs Vital signs: Temp Pulse Resp BP Pulse Ox 100.5 F H 93 15 149/72 H 99 12/28/18 19:37 12/28/18 19:37 12/28/18 19:37 12/28/18 19:37 12/28/18 19:37
--- NOTE | 2018-12-28 20:29 | RADIOLOGY REPORT (SQ) ---
XR CHEST 2 VIEWS CLINICAL STATEMENT: cough conges COMPARISON: None FINDINGS: Cardiomediastinal silhouette is within normal limits. There is no focal lung consolidation or pleural effusion. No evidence of pulmonary edema or pneumothorax. IMPRESSION: No acute cardiopulmonary disease.
[2018-12-28 21:31] LABS: ABSOLUTE MONOCYTES (AUTO) 0.6 10^3/uL (0.1-1.4); EOSINOPHILS % (AUTO) 0.5 % (0-6); MONOCYTES % (AUTO) 8.8 % (3-13); TOTAL CELLS COUNTED % (AUTO) 100 %
[2018-12-28 21:34] LABS: ABSOLUTE BASOPHILS # (AUTO) 0.1 10^3/uL (0.0-0.2); ABSOLUTE LYMPHOCYTES (AUTO) 0.8 10^3/uL (0.5-4.7); ABSOLUTE NEUT (AUTO) 5.5 10^3/uL (1.7-8.2); BASOPHILS % (AUTO) 0.8 % (0-2); HEMATOCRIT 46.6 % (37.9-51.0); HEMOGLOBIN 15.6 g/dL (13.5-17.0); LYMPHOCYTES % (AUTO) 10.9 % (13-45); MEAN CORPUSCULAR HGB CONC 33.6 g/dL (32.0-36.0); MEAN CORPUSCULAR VOLUME 86 fl (80-97); PLATELET COUNT 208 10^3/uL (150-450); RED CELL DISTRIBUTION WIDTH 13.8 % (11.5-14.0); WHITE BLOOD COUNT 6.9 10^3/uL (4.0-10.5)
[2018-12-28 21:53] LABS: A TYPE INFLUENZA AG NEGATIVE (NEGATIVE); B INFLUENZA AG NEGATIVE (NEGATIVE)
[2018-12-28 21:54] LABS: ALBUMIN 4.3 g/dL (3.5-5.0); ALKALINE PHOSPHATASE 61 U/L (38-126); ANION GAP 9 (5-19); ASPARTATE AMINO TRANSFERASE 39 U/L (17-59); BILIRUBIN,TOTAL 0.8 mg/dL (0.2-1.3); BLOOD UREA NITROGEN 7 mg/dL (7-20); CALCIUM 9.4 mg/dL (8.4-10.2); CARBON DIOXIDE 28 mmol/L (22-30); CHLORIDE 101 mmol/L (98-107); GLUCOSE 118 mg/dL (75-110); POTASSIUM 3.9 mmol/L (3.6-5.0); TOTAL PROTEIN 7.1 g/dL (6.3-8.2)
== END 2018-12-29 02:00 | disposition left against medical advice (07) ==
LOC: ER 19:10
DX: M79.10 Myalgia, unspecified site (principal); R42 Dizziness and giddiness; R11.0 Nausea; R50.9 Fever, unspecified
CPT/HCPCS: 36415; 71046; 80053; 85025; 87070; 87077; 87804; 87880; 99281

== ENCOUNTER 2018-12-29 08:26 | Emergency (ER) | payer BC ==
--- NOTE | 2018-12-29 09:13 | ER Document Report ---
ED General - General Chief Complaint: Sore Throat Stated Complaint: HEADACHE,SORE THROAT,NAUSEA Time Seen by Provider: 12/29/18 09:09 Primary Care Provider: [facility] [Provider Group] - Follow up in 1 week TRAVEL OUTSIDE OF THE [place] IN LAST 30 DAYS: No - HPI Notes: 28 year old male to the ED with C/O sore throat, cough, fevers, body aches that began last night at 6 pm. States that he came to the ER for the same last night, but did not wait for completion of his evaluation. Last night he had a chest XR, labs, flu and strep swab. He has been taking OTC cold and flu. States that it has not helped. States he is here today to have further evaluation. - Related Data Allergies/Adverse Reactions: No Known Allergies Allergy (Verified 12/28/18 19:53) Past Medical History - General Information source: Patient - Social History Smoking Status: Never Smoker Chew tobacco use (# tins/day): No Frequency of alcohol use: None Drug Abuse: None Family History: Reviewed & Not Pertinent Patient has suicidal ideation: No Patient has homicidal ideation: No Pulmonary Medical History: Reports: Hx Asthma - childhood Renal/ Medical History: Denies: Hx Peritoneal Dialysis Musculoskeletal Medical History: Reports Hx Musculoskeletal Trauma - Immunizations Immunizations up to date: Yes Hx Diphtheria, Pertussis, Tetanus Vaccination: Yes Review of Systems - Review of Systems Constitutional: Chills, Fever, Malaise EENT: Nose congestion, Throat pain. denies: Ear pain Cardiovascular: denies: Chest pain, Palpitations, Dyspnea, Syncope, Dizziness Respiratory: Cough. denies: Hurts to breathe, Short of breath, Wheezing Gastrointestinal: Nausea. denies: Abdominal pain, Diarrhea, Vomiting Genitourinary: denies: Flank pain Musculoskeletal: Muscle pain - body aches. denies: Back pain Skin: No symptoms reported Neurological/Psychological: Headaches -: Yes All other systems reviewed and negative Physical Exam - Vital signs Vitals: Temp Pulse Resp BP Pulse Ox 99.7 F 89 16 124/76 97 12/29/18 08:30 12/29/18 08:30 12/29/18 08:30 12/29/18 08:30 12/29/18 08:30 Interpretation: Normal - General General appearance: Appears well, Alert In distress: None - HEENT Head: Normocephalic, Atraumatic Eyes: Normal Pupils: PERRL Ears: Normal External canal: Normal Tympanic membrane: Normal Sinus: Normal Nasal: Normal, Clear rhinorrhea Mouth/Lips: Normal. No: Angioedema Pharynx: Erythema, Post nasal drainage. No: Exudate, Peritonsillar abscess, Retropharyngeal abscess, Tonsillar hypertrophy, Uvular edema, Potential airway comprom. Neck: Normal, Supple. No: Meningismus - Respiratory Respiratory status: No respiratory distress Chest status: Nontender. No: Pain on movement, Pain with cough Breath sounds: Nonproductive cough. No: Rales, Rhonchi, Stridor, Wheezing Chest palpation: Normal - Cardiovascular Rhythm: Regular Heart sounds: Normal auscultation Murmur: No - Abdominal Inspection: Normal Distension: No distension Bowel sounds: Normal Tenderness: Nontender Organomegaly: No organomegaly - Back Back: Normal, Nontender - Neurological Neuro grossly intact: Yes Cognition: Normal Orientation: AAOx4 Maggie Coma Scale Eye Opening: Spontaneous Randolph Coma Scale Verbal: Oriented Maggie Coma Scale Motor: Obeys Commands Maggie Coma Scale Total: 15 Speech: Normal Motor strength normal: LUE, RUE, LLE, RLE Sensory: Normal - Psychological Associated symptoms: Normal affect, Normal mood - Skin Skin Temperature: Warm Skin Moisture: Dry Skin Color: Normal Course - Re-evaluation Re-evalutation: reviewed labs, CXR, and swabs from yesterday -- labs reassuring, CXR with no acute process, negative for flu and strep. Do not think that pt needs further lab work or repeat imaging. WIll send home with symptomatic relief medications. Urged to push fluids and rest. Pt agrees with the plan. - Vital Signs Vital signs: Temp Pulse Resp BP Pulse Ox 98.8 F 71 18 137/79 H 98 12/29/18 10:00 12/29/18 10:00 12/29/18 10:00 12/29/18 10:00 12/29/18 10:00 Discharge - Discharge Clinical Impression: Flu-like symptoms, Generalized body aches, Sore throat Upper respiratory infection Qualifiers: URI type: unspecified URI Qualified Code(s): J06.9 - Acute upper respiratory infection, unspecified Condition: Stable Disposition: HOME, SELF-CARE Instructions: Fever ([facility]), Upper Respiratory Illness ([facility]) Additional Instructions: Take medicines as prescribed. Alternate between Tylenol and Motrin. Rest at home and push fluids. Return if worsening symptoms such as chest pain, shortness of breath, intractable vomiting. Prescriptions: Benzonatate [Tessalon Perle 100 mg Capsule] 100 mg PO Q8HP PRN #40 cap PRN Reason: Ibuprofen [Motrin 800 mg Tablet] 800 mg PO Q8H PRN #30 tab PRN Reason: Albuterol Sulfate [Proair HFA Inhalation Aerosol 8.5 gm MDI] 2 puff IH Q4H PRN #1 mdi PRN Reason: Albuterol Sulfate [Proventil 0.5% Neb 2.5 mg/0.5 ml Vial.neb] 2.5 mg NEB Q4H #30 vial Ondansetron [Zofran Odt 4 mg Tablet] 1 - 2 tab PO Q4H PRN #15 tab.rapdis PRN Reason: For Nausea/Vomiting Forms: Return to Work Referrals: [facility] [Provider Group] - Follow up in 1 week
[2018-12-29] MEDS ORDERED: ONDANSETRON 4 MG TAB.RAPDIS PO ONE (09:30)
[2018-12-29] MEDS ORDERED: IBUPROFEN 800 MG TABLET PO ONE (09:30)
[2018-12-29 10:02] VITALS: BP 137/79
== END 2018-12-29 10:01 | disposition home or self-care (01) ==
LOC: ER 08:26
DX: J06.9 Acute upper respiratory infection, unspecified (principal); J02.9 Acute pharyngitis, unspecified; R05 Cough; R50.9 Fever, unspecified; R53.81 Other malaise; R09.81 Nasal congestion; R11.0 Nausea; M79.10 Myalgia, unspecified site; R51 Headache; R09.82 Postnasal drip
CPT/HCPCS: 99282; S0119

== ENCOUNTER 2019-05-28 15:50 | Emergency (ER) | payer BC ==
[2019-05-28] MEDS ORDERED: ASPIRIN 81 MG TABLET, CHEWABLE PO ONE (16:01)
--- NOTE | 2019-05-28 16:05 | ER Document Report ---
ED Medical Screen (RME) - General Chief Complaint: Chest Pain Stated Complaint: LEFT ARM NUMBNESS, chest pain Time Seen by Provider: 05/28/19 15:59 Mode of Arrival: Ambulatory Information source: Patient Notes: 29-year-old male presented to ED for complaint of left chest pain with pain and numbness going down the left arm. He states the pain started yesterday he states the pain is been coming and going since then. He thought it would go away so he did not come yesterday. He states is continued to come and go so he is come into the emergency room to get it examined. 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 States that he had shortness of breath yesterday when it started. Denies any diaphoresis. States his father had a heart attack about 51 years old. Patient is alert oriented respirations regular nonlabored at this time. I have greeted and performed a rapid initial assessment of this patient. A comprehensive ED assessment and evaluation of the patient, analysis of test results and completion of medical decision making process will be conducted by an additional ED providers. TRAVEL OUTSIDE OF THE [place] IN LAST 30 DAYS: No - Related Data Allergies/Adverse Reactions: No Known Allergies Allergy (Verified 12/28/18 19:53) Past Medical History Pulmonary Medical History: Reports: Hx Asthma - childhood Renal/ Medical History: Denies: Hx Peritoneal Dialysis Musculoskeltal Medical History: Reports Hx Musculoskeletal Trauma - Immunizations Immunizations up to date: Yes Hx Diphtheria, Pertussis, Tetanus Vaccination: Yes Physical Exam - Vital signs Vitals: Temp Pulse Resp BP Pulse Ox 97.8 F 83 18 143/78 H 100 05/28/19 15:54 05/28/19 15:54 05/28/19 15:54 05/28/19 15:54 05/28/19 15:54 Course - Vital Signs Vital signs: Temp Pulse Resp BP Pulse Ox 97.8 F 83 18 143/78 H 100 05/28/19 15:54 05/28/19 15:54 05/28/19 15:54 05/28/19 15:54 05/28/19 15:54
--- NOTE | 2019-05-28 16:39 | ER Document Report ---
ED General - General Chief Complaint: Chest Pain Stated Complaint: LEFT ARM NUMBNESS, chest pain Time Seen by Provider: 05/28/19 15:59 Mode of Arrival: Ambulatory TRAVEL OUTSIDE OF THE [place] IN LAST 30 DAYS: No - HPI Notes: Patient is a 29-year-old male presents complaining of intermittent left lateral chest pain since yesterday. 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 Patient does report a short period of shortness of breath that is since resolved. Patient states that the pain does move into his left arm and causes some tingling/soreness. Patient states that he currently does not have any pain or symptoms to report. He has been able to eat and drink without difficulty. He is urinating normally and having normal bowel movements. 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 Father had a heart attack at 51 years old. Denies any prolonged immobilization, distance travel, recent surgery/trauma, personal cancer history, hormone use, smoking, or previous DVT/PE. Denies any headache, fever, neck pain, URI, sore throat, current chest pain, palpitations, syncope, cough, shortness of breath, wheeze, dyspnea, abdominal pain, nausea/vomiting/diarrhea, urinary retention, dysuria, hematuria, loss of control of bowel or bladder, saddle anesthesia, muscle paralysis/weakness, or rash. - Related Data Allergies/Adverse Reactions: shellfish derived Allergy (Verified 05/28/19 16:03) Past Medical History - General Information source: Patient - Social History Smoking Status: Never Smoker Family History: Reviewed & Not Pertinent Patient has suicidal ideation: No Patient has homicidal ideation: No Pulmonary Medical History: Reports: Hx Asthma - childhood Renal/ Medical History: Denies: Hx Peritoneal Dialysis Musculoskeletal Medical History: Reports Hx Musculoskeletal Trauma - Immunizations Immunizations up to date: Yes Hx Diphtheria, Pertussis, Tetanus Vaccination: Yes Review of Systems - Review of Systems -: Yes All other systems reviewed and negative Physical Exam - Vital signs Vitals: Temp Pulse Resp BP Pulse Ox 97.8 F 83 18 143/78 H 100 05/28/19 15:54 05/28/19 15:54 05/28/19 15:54 05/28/19 15:54 05/28/19 15:54 - Notes Notes: PHYSICAL EXAMINATION: GENERAL: Well-appearing, well-nourished and in no acute distress. HEAD: Atraumatic, normocephalic. EYES: Pupils equal round and reactive to light, extraocular movements intact, sclera anicteric, conjunctiva are normal. ENT: Nares patent and without discharge. oropharynx clear without exudates. No tonsilar hypertrophy or erythema. Moist mucous membranes. NECK: Normal range of motion, supple without lymphadenopathy LUNGS: Breath sounds clear to auscultation bilaterally and equal. No wheezes rales or rhonchi. HEART: Regular rate and rhythm without murmurs, rubs, gallops. ABDOMEN: Soft, nontender, nondistended abdomen. No guarding, no rebound. Normal bowel sounds present. No CVA tenderness bilaterally. Musculoskeletal: FROM to passive/active. Strength 5+/5. Donny neg. No asymmetry to LE's. Extremities: No cyanosis, clubbing, or edema b/l. Peripheral pulses 2+. Capillary refill less than 3 seconds. NEUROLOGICAL: Normal speech, normal gait. PSYCH: Normal mood, normal affect. SKIN: Warm, Dry, normal turgor, no rashes or lesions noted. Course - Re-evaluation Re-evalutation: 05/28/19 18:01 Patient is an afebrile, well-hydrated 29-year-old male who presents to the ED with nonspecific chest pain, currently resolved, suspect musculoskeletal. Vitals are acceptable without any significant tachycardia, tachypnea, or hypoxia. PE is otherwise. Patient is nontoxic-appearing and is tolerating p.o. without any difficulties. Pt is currently asymptomatic. CBC, CMP, EKG/cardiac enzyme, chest x-ray are all unremarkable for any acute pathology. Patient has a heart score of 1, Wells score of 0, and is PERC negative. Patient does not have any chest pain, dyspnea, or shortness of breath. Patient's presentation and symptomatology creates low suspicion for ACS, PE, pneumothorax, pericarditis, dissection, respiratory compromise, severe dehydration, sepsis, meningitis, or other systemic emergent condition at this time. Patient is aware that his condition can change from initial presentation and he needs to monitor symptoms closely and seek medical attention for any acute changes. Recommend conservat rosanne measures for symptoms. Recheck with your PCM in 2-3 days. Consider consult with Cardiology. Return to the ED with any worsening/concerning symptoms otherwise as reviewed in discharge. Patient is in agreement. - Vital Signs Vital signs: Temp Pulse Resp BP Pulse Ox 97.8 F 83 28 H 141/89 H 98 05/28/19 15:54 05/28/19 15:54 05/28/19 16:29 05/28/19 16:29 05/28/19 16:47 - Laboratory Result Diagrams: 05/28/19 16:30 05/28/19 16:30 Laboratory results interpreted by me: 05/28/19 05/28/19 16:30 16:30 RDW 14.3 H Eos % (Auto) 6.1 H Seg Neutrophils % 40.8 L Total Protein 8.3 H Discharge - Discharge Clinical Impression: Nonspecific chest pain Condition: Stable Disposition: HOME, SELF-CARE Instructions: Chest Pain of Unclear Cause ([facility]) Additional Instructions: Maintain adequate fluid and food intake Take home medications as directed healthy diet Monitor blood pressure daily and keep a log Monitor symptoms for any acute changes Recheck with your PCM in 3-5 days Consider a follow-up with cardiology Return to the ED with any worsening symptoms and/or development of fever, headache, chest pain, palpitations, syncope, shortness of breath, trouble breathing, abdominal pain, n/v/d, blood in stool/urine, loss of control of bowel/bladder, urinary retention, muscle weakness/paralysis, numbness/tingling, or other worsening symptoms that are concerning to you. Forms: Elevated Blood Pressure Referrals: MARYSOL MARTÍNEZ MD [ACTIVE STAFF] - Follow up as needed
--- NOTE | 2019-05-28 16:46 | RADIOLOGY REPORT (SQ) ---
EXAM DESCRIPTION: CHEST 2 VIEWS COMPLETED DATE/TIME: 05/28/2019 3:20 pm REASON FOR STUDY: chest pain for 1 day COMPARISON: None. EXAM PARAMETERS: NUMBER OF VIEWS: two views TECHNIQUE: Digital Frontal and Lateral radiographic views of the chest acquired. RADIATION DOSE: NA LIMITATIONS: none FINDINGS: LUNGS AND PLEURA: No opacities, masses or pneumothorax. No pleural effusion. MEDIASTINUM AND HILAR STRUCTURES: No masses or contour abnormalities. HEART AND VASCULAR STRUCTURES: Heart normal size. No evidence for failure. BONES: No acute findings. HARDWARE: None in the chest. OTHER: No other significant finding. IMPRESSION: NO ACUTE RADIOGRAPHIC FINDING IN THE CHEST. TECHNICAL DOCUMENTATION: JOB ID: [id number] 2010 [employer]- All Rights Reserved Reading location - IP/workstation name: [email or web address]
[2019-05-28 16:51] LABS: ABSOLUTE BASOPHILS # (AUTO) 0.1 10^3/uL (0.0-0.2); ABSOLUTE EOSINOPHILS # (AUTO) 0.4 10^3/uL (0.0-0.6); ABSOLUTE LYMPHOCYTES (AUTO) 2.7 10^3/uL (0.5-4.7); ABSOLUTE MONOCYTES (AUTO) 0.4 10^3/uL (0.1-1.4); ABSOLUTE NEUT (AUTO) 2.4 10^3/uL (1.7-8.2); BASOPHILS % (AUTO) 1.9 % (0-2); EOSINOPHILS % (AUTO) 6.1 % (0-6); HEMATOCRIT 45.7 % (37.9-51.0); LYMPHOCYTES % (AUTO) 44.7 % (13-45); MEAN CORPUSCULAR HEMOGLOBIN 29.8 pg (27.0-33.4); MEAN CORPUSCULAR HGB CONC 35.1 g/dL (32.0-36.0); MEAN CORPUSCULAR VOLUME 85 fl (80-97); MONOCYTES % (AUTO) 6.5 % (3-13); PLATELET COUNT 249 10^3/uL (150-450); RED BLOOD COUNT 5.38 10^6/uL (4.35-5.55); RED CELL DISTRIBUTION WIDTH 14.3 % (11.5-14.0); SEGMENTED NEUTROPHILS % (AUTO) 40.8 % (42-78); TOTAL CELLS COUNTED % (AUTO) 100 %
[2019-05-28 17:08] LABS: ALBUMIN 4.9 g/dL (3.5-5.0); ALKALINE PHOSPHATASE 54 U/L (38-126); ANION GAP 7 (5-19); ASPARTATE AMINO TRANSFERASE 41 U/L (17-59); BILIRUBIN,DIRECT 0.1 mg/dL (0.0-0.4); BILIRUBIN,TOTAL 0.9 mg/dL (0.2-1.3); BLOOD UREA NITROGEN 9 mg/dL (7-20); CALCIUM 9.7 mg/dL (8.4-10.2); CARBON DIOXIDE 30 mmol/L (22-30); CHLORIDE 102 mmol/L (98-107); GLUCOSE 80 mg/dL (75-110); POTASSIUM 4.2 mmol/L (3.6-5.0); TOTAL PROTEIN 8.3 g/dL (6.3-8.2)
[2019-05-28 18:03] VITALS: BP 124/68
--- NOTE | 2019-05-28 21:34 | EKG REPORT ---
SEVERITY:- NORMAL ECG - SINUS RHYTHM : Confirmed by: Xiang Marr MD 28-May-2019 21:33:03
== END 2019-05-28 18:11 | disposition home or self-care (01) ==
LOC: ER 15:50
DX: R07.9 Chest pain, unspecified (principal); Z91.013 Allergy to seafood; Z82.49 Family history of ischemic heart disease and other diseases of the circulatory system
CPT/HCPCS: 36415; 71046; 80053; 84484; 85025; 93005; 93010; 99285

== ENCOUNTER 2019-10-07 23:47 | Emergency (ER) | payer BC ==
[2019-10-07 23:52] VITALS: BP 135/77
[2019-10-08] MEDS ORDERED: HYDROCODONE/ACETAMINOPHEN 5-325 MG (6 TAB/ER DISP) PO PRN (00:11)
[2019-10-08] MEDS ORDERED: AMOXICILLIN TR/POT CLAVULANATE 875-125 MG TAB PO ONE (00:11)
[2019-10-08] MEDS ORDERED: CIPROFLOXACIN HCL/DEXAMETH OTIC DROP 7.5 ML AD ONE (00:14)
--- NOTE | 2019-10-08 00:16 | ER Document Report ---
ED Oral Problem - General Chief Complaint: Mouth Problem Stated Complaint: PAIN RIGHT SIDE OF HEAD Time Seen by Provider: 10/08/19 00:08 Notes: This 29-year-old male presents to the emergency room today stating he had pain to his right lower jaw tooth #30 for approximately 3 days the area is tender started having pain radiating up to the ear this evening. TRAVEL OUTSIDE OF THE [place] IN LAST 30 DAYS: No - HPI Patient complains to provider of: Jaw pain, Toothache Onset: Gradual Quality of pain: Achy, Fullness, Pressure Severity: Moderate Associated symptoms: Facial pain, Jaw pain. denies: None, Cough - Related Data Allergies/Adverse Reactions: shellfish derived Allergy (Verified 10/08/19 00:08) Past Medical History - General Information source: Patient - Social History Smoking Status: Never Smoker Cigarette use (# per day): No Chew tobacco use (# tins/day): No Smoking Education Provided: No Frequency of alcohol use: None Drug Abuse: None Family History: Reviewed & Not Pertinent Pulmonary Medical History: Reports: Hx Asthma - childhood Renal/ Medical History: Denies: Hx Peritoneal Dialysis Musculoskeletal Medical History: Reports Hx Musculoskeletal Trauma - Immunizations Immunizations up to date: Yes Hx Diphtheria, Pertussis, Tetanus Vaccination: Yes Review of Systems - Review of Systems Constitutional: No symptoms reported EENT: Ear pain, Mouth pain, Dental problem Cardiovascular: No symptoms reported Respiratory: No symptoms reported Gastrointestinal: No symptoms reported Genitourinary: No symptoms reported Male Genitourinary: No symptoms reported Musculoskeletal: No symptoms reported Skin: No symptoms reported Hematologic/Lymphatic: No symptoms reported Neurological/Psychological: No symptoms reported Physical Exam - Vital signs Vitals: Temp Pulse Resp BP Pulse Ox 98.6 F 84 16 135/77 H 100 10/07/19 23:51 10/07/19 23:51 10/07/19 23:51 10/07/19 23:51 10/07/19 23:51 Interpretation: Normal - General General appearance: Appears well, Alert - HEENT Head: Normocephalic, Atraumatic Eyes: Normal Pupils: PERRL External canal: Other - Right canal erythemic tender Sinus: Normal Nasal: Normal Mouth/Lips: Normal Teeth diagram: 1 - Severe dentalgia - Respiratory Respiratory status: No respiratory distress Chest status: Nontender Breath sounds: Normal Chest palpation: Normal - Cardiovascular Rhythm: Regular Heart sounds: Normal auscultation Murmur: No - Abdominal Inspection: Normal Distension: No distension Bowel sounds: Normal Tenderness: Nontender Organomegaly: No organomegaly - Back Back: Normal, Nontender - Extremities General upper extremity: Normal inspection, Nontender, Normal color, Normal ROM, Normal temperature General lower extremity: Normal inspection, Nontender, Normal color, Normal ROM, Normal temperature, Normal weight bearing. No: Donny's sign - Neurological Neuro grossly intact: Yes Cognition: Normal Orientation: AAOx4 [place] Coma Scale Eye Opening: Spontaneous [place] Coma Scale Verbal: Oriented [place] Coma Scale Motor: Obeys Commands Maggie Coma Scale Total: 15 Speech: Normal Motor strength normal: LUE, RUE, LLE, RLE Sensory: Normal - Psychological Associated symptoms: Normal affect, Normal mood - Skin Skin Temperature: Warm Skin Moisture: Dry Skin Color: Normal Course - Vital Signs Vital signs: Temp Pulse Resp BP Pulse Ox 98.6 F 84 16 135/77 H 100 10/07/19 23:51 10/07/19 23:51 10/07/19 23:51 10/07/19 23:51 10/07/19 23:51 Discharge - Discharge Clinical Impression: Dentalgia Right otitis externa Qualifiers: Otitis externa type: unspecified type Chronicity: acute Qualified Code(s): H60.501 - Unspecified acute noninfective otitis externa, right ear Condition: Good Disposition: HOME, SELF-CARE Instructions: Use of Ear Drops ([facility]), [facility], Oral Narcotic Medication ([facility]), Toothache ([facility]), Otitis Externa ([facility]) Prescriptions: Amoxicillin/Potassium Clav [Augmentin 875-125 Tablet] 1 tab PO Q12 #20 tablet Ciprofloxacin HCl/Dexameth [Ciprodex Otic Suspension 7.5 ml Bottle] 4 drop OT BID #1 bottle
== END 2019-10-08 00:30 | disposition home or self-care (01) ==
LOC: ER 23:47
DX: H60.501 Unspecified acute noninfective otitis externa, right ear (principal); R68.84 Jaw pain; K08.89 Other specified disorders of teeth and supporting structures; H92.01 Otalgia, right ear; J45.909 Unspecified asthma, uncomplicated
CPT/HCPCS: 99282; J3490 ×2